=== PATIENT | female | born 1995 | race Asian ===

== ENCOUNTER 2021-12-27 11:41 | Emergency (ER) | payer BC ==
[~2021-12-27] VITALS: Ht 165.1 cm; Wt 56.3 kg
[2021-12-27] MEDS ORDERED: ONDANSETRON 4MG/2ML VIAL IV ONE (12:20)
[2021-12-27] MEDS ORDERED: KETOROLAC 30 MG/ML 1ML VIAL IV ONE (12:20)
[2021-12-27 12:39] LABS: HEMATOCRIT 40.7 % (36.0-47.0); HEMOGLOBIN 13.3 g/dl (12.0-15.5); MEAN CORPUSCULAR HEMOGLOBIN 31.6 pg (27.0-33.0); MEAN CORPUSCULAR HGB CONC 32.7 g/dl (32.0-36.5); MEAN CORPUSCULAR VOLUME 96.7 fl (80.0-96.0); NEUTROPHILS % 70.8 % (36.0-66.0); PLATELET COUNT, AUTOMATED 224 10^3/uL (150-450); RED BLOOD COUNT 4.21 10^6/uL (4.00-5.40); WHITE BLOOD COUNT 3.9 10^3/uL (4.0-10.0)
[2021-12-27 12:40] LABS: BASO # 0.1 10^3/uL (0.0-0.2); BASO % 1.3 % (0.0-1.0); EOS # 0.1 10^3/uL (0.0-0.5); EOS % 1.5 % (0.0-3.0); LYMPH # 0.7 10^3/uL (1.5-5.0); LYMPH % 18.6 % (24.0-44.0); MONO # 0.3 10^3/uL (0.0-0.8); MONO % 7.5 % (2.0-8.0); NEUTROPHILS # 2.8 10^3/uL (1.5-8.5)
[2021-12-27 13:26] LABS: ALBUMIN 3.7 GM/DL (3.2-5.2); ALT/SGPT 45 U/L (12-78); BILIRUBIN,DIRECT < 0.1 MG/DL (0.0-0.2); BILIRUBIN,TOTAL 0.2 MG/DL (0.2-1.0); LIPASE 90 U/L (73-393)
[2021-12-27] MEDS ORDERED: NS 1,000 ML IV ONE (13:35)
[2021-12-27] MEDS ORDERED: ACETAMINOPHEN 325 MG TAB PO ONE (14:00)
[2021-12-27 16:53] LABS: C REACTIVE PROTEIN QUANTITATIV 0.79 MG/DL (0.00-0.30)
[2021-12-27] MEDS: GASTROGRAFIN SOLUTION 30ML PO SCH ×2 (17:25→17:57)
[2021-12-27] MEDS ORDERED: MORPHINE 2 MG/ML 1ML VIAL (J2270) IV ONE (18:15)
[2021-12-27] MEDS ORDERED: ISOVUE-370 76% 100ML VIAL As Ordered ONE (18:52)
[2021-12-27] MEDS ORDERED: cefTRIAXone SOD 2 GM in D5W MINI-BAG PLUS 50 ML IV ONE (20:55)
[2021-12-27] MEDS ORDERED: CIPR-249 PO (21:00)
[2021-12-27 21:52] VITALS: BP 119/81
== END 2021-12-27 21:56 | disposition home or self-care (01) ==
LOC: M ED 11:41
DX: R10.11 Right upper quadrant pain (principal); N10 Acute pyelonephritis; R18.8 Other ascites; R94.4 Abnormal results of kidney function studies
CPT/HCPCS: 74018; 74176; 74177; 76705; 80047; 80076; 81001; 83690; 84702; 85025; 86140; 87086; 96361; 96365; 96375; 99284; J0696; J1885; J2270; J2405; Q9967

== ENCOUNTER → 2021-12-30 | Outpatient (CLI) | payer BC ==
[~2021-12-30] MED LIST: CIPR-249 PO
[2021-12-30 10:47] LABS: HEMATOCRIT 40.1 % (36.0-47.0); MEAN CORPUSCULAR HEMOGLOBIN 31.1 pg (27.0-33.0); MEAN CORPUSCULAR HGB CONC 32.4 g/dl (32.0-36.5); MEAN CORPUSCULAR VOLUME 95.9 fl (80.0-96.0); PLATELET COUNT, AUTOMATED 229 10^3/uL (150-450); RED BLOOD COUNT 4.18 10^6/uL (4.00-5.40); WHITE BLOOD COUNT 2.8 10^3/uL (4.0-10.0)
[2021-12-30 11:19] LABS: ALBUMIN 3.9 GM/DL (3.2-5.2); BILIRUBIN,TOTAL 0.3 MG/DL (0.2-1.0); C REACTIVE PROTEIN QUANTITATIV 0.3 MG/DL (0.00-0.30); CALCIUM LEVEL 9.3 MG/DL (8.5-10.1); CREATININE FOR GFR 1.32 MG/DL (0.55-1.30); TOTAL PROTEIN 6.8 GM/DL (6.4-8.2)
== END ==
LOC: M LAB 09:15
PROVIDERS: ATTEND Surgery
DX: R10.84 Generalized abdominal pain (principal)

== ENCOUNTER 2022-01-25 09:28 | Emergency (ER) | payer BC ==
[~2022-01-25] VITALS: Ht 165.1 cm; Wt 54.2 kg
[2022-01-25] MEDS ORDERED: NS 1,000 ML IV ONE (11:45)
[2022-01-25] MEDS ORDERED: ONDANSETRON 4MG/2ML VIAL IV ONE (11:45)
[2022-01-25] MEDS ORDERED: ACETAMINOPHEN TAB 650MG DOSE (2X325MG) PO ONE ×2 (11:45→16:05)
[2022-01-25 12:42] LABS: BASO % 0.5 % (0.0-1.0); EOS % 0.2 % (0.0-3.0); HEMATOCRIT 40.3 % (36.0-47.0); HEMOGLOBIN 13.5 g/dl (12.0-15.5); LYMPH # 0.3 10^3/uL (1.5-5.0); LYMPH % 5.3 % (24.0-44.0); MEAN CORPUSCULAR HEMOGLOBIN 32.4 pg (27.0-33.0); MEAN CORPUSCULAR HGB CONC 33.5 g/dl (32.0-36.5); MEAN CORPUSCULAR VOLUME 96.6 fl (80.0-96.0); MONO # 0.4 10^3/uL (0.0-0.8); MONO % 7.4 % (2.0-8.0); NEUTROPHILS # 4.8 10^3/uL (1.5-8.5); NEUTROPHILS % 86.4 % (36.0-66.0); PLATELET COUNT, AUTOMATED 199 10^3/uL (150-450); RED BLOOD COUNT 4.17 10^6/uL (4.00-5.40); WHITE BLOOD COUNT 5.5 10^3/uL (4.0-10.0)
[2022-01-25 13:10] LABS: ALBUMIN 3.6 GM/DL (3.2-5.2); ALT/SGPT 39 U/L (12-78); BILIRUBIN,DIRECT 0.1 MG/DL (0.0-0.2); BILIRUBIN,TOTAL 0.4 MG/DL (0.2-1.0); BLOOD UREA NITROGEN 17 MG/DL (7-18); CALCIUM LEVEL 8.5 MG/DL (8.5-10.1); CARBON DIOXIDE LEVEL 27 MEQ/L (21-32); CHLORIDE LEVEL 108 MEQ/L (98-107); CREATININE FOR GFR 0.97 MG/DL (0.55-1.30); GLOMERULAR FILTRATION RATE > 60.0 (>60); GLUCOSE, FASTING 92 MG/DL (70-100); POTASSIUM SERUM 3.9 MEQ/L (3.5-5.1); SODIUM LEVEL 139 MEQ/L (136-145); TOTAL PROTEIN 6.7 GM/DL (6.4-8.2)
[2022-01-25] MEDS ORDERED: MORPHINE 2 MG/ML 1ML VIAL IV ONE (13:10)
[2022-01-25 13:21] LABS: RSV AMPLIFICATION NEGATIVE (NEGATIVE)
[2022-01-25 14:09] LABS: APPEARANCE, URINE HAZY (CLEAR); BACTERIA, URINE AUTO 1+ (NEGATIVE); BILIRUBIN, URINE AUTO NEGATIVE (NEGATIVE); BLOOD, URINE BLOOD NEGATIVE (NEGATIVE); COLOR, URINE YELLOW (YELLOW); GLUCOSE, URINE (UA) AUTO NEGATIVE (NEGATIVE); KETONE, URINE AUTO NEGATIVE (NEGATIVE); LEUKOCYTE ESTERASE, URINE AUTO TRACE (NEGATIVE); MUCUS, URINE SMALL (NEGATIVE); NITRITE, URINE AUTO NEGATIVE (NEGATIVE); PROTEIN, URINE AUTO NEGATIVE (NEGATIVE); RBC, URINE AUTO 1 /HPF (0-3); SPECIFIC GRAVITY URINE AUTO 1.028 (1.002-1.035); SQUAMOUS EPITHELIAL CELL UR AU 0 /HPF (0-6); TRANSITIONAL EPITHELIAL AUTO <1 /HPF; UROBILINOGEN, URINE AUTO 0.2 mg/dL (0.0-2.0); WBC, URINE AUTO 10 /HPF (0-3)
[2022-01-25] MEDS ORDERED: KETOROLAC 30 MG/ML 1ML VIAL IV ONE (15:25)
[2022-01-25 15:33] LABS: GC DNA AMPLIFICATION NEGATIVE (NEGATIVE)
[2022-01-25 17:36] VITALS: BP 90/60
== END 2022-01-25 17:47 | disposition home or self-care (01) ==
LOC: M ED 09:28
DX: R10.9 Unspecified abdominal pain (principal)
CPT/HCPCS: 71046; 74018; 76775; 76856; 80048; 80076; 81001; 83605; 84702; 85025; 87040; 87210; 87631; 87661; 87810; 87850; 93976; 96361; 96374; 96375; 99284; J1885; J2270; J2405

== ENCOUNTER 2022-09-03 06:42 | Emergency (ER) | payer BC ==
[~2022-09-03] VITALS: Ht 165.1 cm; Wt 53.7 kg
[2022-09-03 06:43] VITALS: BP 122/83
[2022-09-03 08:19] LABS: BASO # 0.1 10^3/uL (0.0-0.2); BASO % 1.1 % (0.0-1.0); EOS # 0.1 10^3/uL (0.0-0.5); EOS % 1.9 % (0.0-3.0); HEMATOCRIT 39.2 % (36.0-47.0); HEMOGLOBIN 13.1 g/dl (12.0-15.5); LYMPH # 0.6 10^3/uL (1.5-5.0); LYMPH % 11.2 % (24.0-44.0); MEAN CORPUSCULAR HEMOGLOBIN 32.6 pg (27.0-33.0); MEAN CORPUSCULAR HGB CONC 33.4 g/dl (32.0-36.5); MEAN CORPUSCULAR VOLUME 97.5 fl (80.0-96.0); MONO # 0.8 10^3/uL (0.0-0.8); MONO % 13.7 % (2.0-8.0); NEUTROPHILS # 4.1 10^3/uL (1.5-8.5); NEUTROPHILS % 71.7 % (36.0-66.0); PLATELET COUNT, AUTOMATED 294 10^3/uL (150-450); RED BLOOD COUNT 4.02 10^6/uL (4.00-5.40); WHITE BLOOD COUNT 5.7 10^3/uL (4.0-10.0)
[2022-09-03] MEDS ORDERED: KETOROLAC 30 MG/ML 1ML VIAL IV ONE (08:35)
[2022-09-03] MEDS ORDERED: METHOCARBAMOL 1,000 MG/10 ML VIAL IV ONE (08:35)
[2022-09-03] MEDS ORDERED: METH-1164 PO (09:37)
[2022-09-03] MEDS ORDERED: KETO10TAB PO (09:37)
== END 2022-09-03 10:23 | disposition home or self-care (01) ==
LOC: M ED 06:42
DX: M62.830 Muscle spasm of back (principal); B97.4 Respiratory syncytial virus as the cause of diseases classified elsewhere; R09.1 Pleurisy; Z79.899 Other long term (current) drug therapy
CPT/HCPCS: 71046; 72072; 80047; 84702; 85025; 87486; 87581; 87633; 87798; 96374; 99283; J1885; J2800

== ENCOUNTER 2023-03-07 07:56 | Emergency (ER) | payer BC ==
[~2023-03-07] VITALS: Ht 165.1 cm; Wt 58.2 kg
[~2023-03-07 07:56] MED LIST changes: +KETO10TAB PO; +METH-1164 PO
[2023-03-07] MEDS ORDERED: DOXYCYCLINE HYCLATE 100MG TABLET PO ONE (09:55)
[2023-03-07 10:50] LABS: EOS # 0.2 10^3/uL (0.0-0.5); EOS % 5.2 % (0.0-3.0); HEMATOCRIT 39.4 % (36.0-47.0); HEMOGLOBIN 13.1 g/dl (12.0-15.5); LYMPH # 0.8 10^3/uL (1.5-5.0); MEAN CORPUSCULAR HEMOGLOBIN 32.3 pg (27.0-33.0); MEAN CORPUSCULAR HGB CONC 33.2 g/dl (32.0-36.5); MONO # 0.4 10^3/uL (0.0-0.8); MONO % 10.4 % (2.0-8.0); NEUTROPHILS # 2.4 10^3/uL (1.5-8.5); NEUTROPHILS % 62.4 % (36.0-66.0); PLATELET COUNT, AUTOMATED 301 10^3/uL (150-450); RED BLOOD COUNT 4.06 10^6/uL (4.00-5.40); WHITE BLOOD COUNT 3.9 10^3/uL (4.0-10.0)
[2023-03-07 11:12] LABS: HCG, SERUM QUANTITATIVE < 2.6 MIU/ML (<4.2)
[2023-03-07 11:15] LABS: THYROID STIMULATING HORMONE 1.274 uIU/ML (0.55-4.78)
[2023-03-07 11:16] LABS: FREE T4 0.99 NG/DL (0.89-1.76)
[2023-03-07] MEDS ORDERED: ISOVUE-370 76% 100ML VIAL As Ordered ONE (11:28)
[2023-03-07] MEDS ORDERED: DOXY-443 PO (13:03)
[2023-03-07 13:13] VITALS: BP 108/72
== END 2023-03-07 13:23 | disposition home or self-care (01) ==
LOC: M ED 07:56
DX: S40.861A Insect bite (nonvenomous) of right upper arm, initial encounter (principal); L03.113 Cellulitis of right upper limb; R00.1 Bradycardia, unspecified; Z88.1 Allergy status to other antibiotic agents; Z79.2 Long term (current) use of antibiotics
CPT/HCPCS: 36415; 71275; 80047; 84439; 84443; 84702; 85025; 87040; 93005; 93041; 99284; Q9967